=== PATIENT | female | born 1995 | race Caucasian/White ===

== ENCOUNTER 2018-03-20 12:11 | Outpatient (CLI) | payer OTHER ==
[2018-03-20 13:30] LABS: ADD UMIC NO; UR ASCORBIC ACID NEGATIVE (NEGATIVE); UR BILIRUBIN (Dip) NEGATIVE (NEGATIVE); UR BLOOD (Dip) NEGATIVE (NEGATIVE); UR CLARITY CLEAR (CLEAR); UR COLOR YELLOW (YELLOW); UR GLUCOSE (Dip) NEGATIVE (NEGATIVE); UR KETONES (Dip) NEGATIVE (NEGATIVE); UR LEUKOCYTE ESTERASE (Dip) NEGATIVE Leu/ul (NEGATIVE); UR NITRITE (Dip) NEGATIVE (NEGATIVE); UR SPECIFIC GRAVITY (Dip) 1.023 (1.003-1.030); UR TOTAL PROTEIN (Dip) NEGATIVE (NEGATIVE); UR UROBILINOGEN (Dip) NEGATIVE (NEGATIVE)
== END 2018-03-20 14:09 | disposition home or self-care (01) ==
LOC: OBT 12:11 → L-D 12:13 → OBT 14:09
DX: O62.9 Abnormality of forces of labor, unspecified (principal); Z3A.28 28 weeks gestation of pregnancy
CPT/HCPCS: 76817; 81003; 82731

== ENCOUNTER 2018-05-28 17:12 | Outpatient (CLI) | payer OTHER | END 2018-05-28 21:05 | disposition home or self-care (01) | LOC: OBT 17:12 → L-D 17:12 → OBT 21:05 | DX: O36.8130 Decreased fetal movements, third trimester, not applicable or unspecified (principal); Z3A.38 38 weeks gestation of pregnancy | CPT/HCPCS: 76815; 76818 ==

== ENCOUNTER 2018-06-06 08:21 | Inpatient (IN) | payer OTHER ==
[2018-06-06] MEDS ORDERED: METHYLERGONOVINE 0.2 MG INJ IM ×2 (09:30→19:00)
[2018-06-06] MEDS ORDERED: CARBOPROST 250 MCG INJ IM ×2 (09:30→19:00)
[2018-06-06] MEDS ORDERED: OXYTOCIN 30 UNITS/LR 500 ML IV ×2 (09:30→19:00)
[2018-06-06] MEDS ORDERED: MISOPROSTOL 200 MCG TAB PR ×2 (09:30→19:00)
[2018-06-06] MEDS ORDERED: CEFAZOLIN 2 GM/50 ML (PMX) 50 ML IV (09:30)
[2018-06-06 09:40] LABS: ADD MAN DIFF? NO
[2018-06-06 09:42] LABS: WHITE BLOOD COUNT 9.4 10^3/ul (4.8-10.8)
[2018-06-06 09:42] LABS: BASOPHIL # 0.1 10^3/ul (0.0-0.1); BASOPHILS % 0.5 % (0.0-2.0); EOSINOPHILS # 0.1 10^3/ul (0.0-0.5); EOSINOPHILS % 0.6 % (0.0-7.0); HEMOGLOBIN 12.5 g/dl (12.0-16.0); LYMPHOCYTES # 2.8 10^3/ul (0.8-2.9); LYMPHOCYTES % 30.1 % (15.0-51.0); MEAN CORPUSCULAR HEMOGLOBIN 30.6 pg (29.0-33.0); MEAN CORPUSCULAR HGB CONC 33.8 g/dl (32.0-37.0); MEAN CORPUSCULAR VOLUME 90.5 fl (82.0-101.0); MEAN PLATELET VOLUME 10.9 fl (7.4-10.4); MONOCYTE # 0.4 10^3/ul (0.3-0.9); MONOCYTES % 4.6 % (0.0-11.0); NEUTROPHILS % 63.6 % (39.0-77.0); PLATELET COUNT 232 10^3/UL (140-415); RED BLOOD COUNT 4.09 10^6/ul (4.20-5.40); RED CELL DISTRIBUTION WIDTH 12.4 % (11.5-14.5)
[2018-06-06 10:02] LABS: INR 0.89; PARTIAL THROMBOPLASTIN TIME 24.1 Sec (23.0-35.0); PROTIME 12.1 Sec (11.9-14.9); PT RATIO 0.9
[2018-06-06] MEDS: LACTATED RINGER'S 1,000 ML IV ×2 (10:20→17:05)
[2018-06-06] MEDS: AMPICILLIN 2 GM/NS (PMX) 100 ML IV (10:20)
[2018-06-06] MEDS: AMPICILLIN 1 GM/NS (PMX) 50 ML IV ×3 (14:56→21:30)
[2018-06-06 15:36] LABS: RAPID PLASMA REAGIN NONREACTIVE (NR)
[2018-06-06] MEDS: ONDANSETRON 4 MG INJ IV (17:31)
[2018-06-06] MEDS: CITRIC ACID/NA CITRATE 30 ML CUP PO (17:31)
[2018-06-06] MEDS ORDERED: HYDROCODONE/APAP (5/325) TAB PO ×2 (19:00)
[2018-06-06] MEDS ORDERED: METHYLERGONOVINE 0.2 MG TAB PO (19:00)
[2018-06-06] MEDS ORDERED: ONDANSETRON 4 MG INJ (19:10)
[2018-06-06] MEDS ORDERED: OXYTOCIN 30 UNITS/LR 1,000 ML IV (19:10)
[2018-06-06] MEDS ORDERED: BUPIVACAINE 0.75%/DEXT (SPINAL) 2 ML INJ (19:10)
[2018-06-06] MEDS ORDERED: PHENYLephrine (100 MCG/ML) 5ML SYG ×3 (19:10)
[2018-06-06] MEDS ORDERED: KETOROLAC 30 MG INJ (19:10)
[2018-06-06] MEDS ORDERED: DEXAMETHASONE 4 MG/ML 1 ML INJ (19:10)
[2018-06-06] MEDS ORDERED: morphine SULFATE/PF (10 MG/10 ML) INJ (19:10)
[2018-06-06] MEDS ORDERED: OXYTOCIN 10 UNIT INJ (19:10)
[2018-06-06] MEDS ORDERED: METOCLOPRAMIDE 10 MG INJ (19:10)
[2018-06-06] MEDS: OXYTOCIN 30 UNITS/LR 500 ML IV ×2 (19:16→23:15)
[2018-06-06] MEDS: SENNA/DOCUSATE NA (8.6MG/50MG) TAB PO (21:00)
[2018-06-06] MEDS ORDERED: ONDANSETRON 4 MG INJ IV (23:00)
[2018-06-06] MEDS ORDERED: morphine 2 MG INJ IV ×2 (23:00)
[2018-06-06] MEDS ORDERED: DIPHENHYDRAMINE 50 MG INJ IV (23:00)
[2018-06-06] MEDS ORDERED: HYDROmorphONE 0.5 MG/0.5 ML SYG IV ×2 (23:00)
[2018-06-07] MEDS: AMPICILLIN 1 GM/NS (PMX) 50 ML IV ×3 (01:30→21:30)
[2018-06-07] MEDS: KETOROLAC 30 MG INJ IV ×3 (01:50→13:33)
[2018-06-07] MEDS: LANOLIN 7 GM TUBE TOP (06:03)
[2018-06-07] MEDS ORDERED: BISACODYL 10 MG SUPP PR (08:30)
[2018-06-07] MEDS ORDERED: MAGNESIUM HYDROXIDE 30ML CUP PO (08:30)
[2018-06-07 08:57] LABS: ADD MAN DIFF? NO
[2018-06-07] MEDS: SENNA/DOCUSATE NA (8.6MG/50MG) TAB PO ×2 (09:00→21:12)
[2018-06-07 09:02] LABS: WHITE BLOOD COUNT 14.4 10^3/ul (4.8-10.8)
[2018-06-07 09:02] LABS: BASOPHILS % 0.3 % (0.0-2.0); EOSINOPHILS % 0.2 % (0.0-7.0); HEMATOCRIT 31.4 % (37.0-47.0); HEMOGLOBIN 10.5 g/dl (12.0-16.0); LYMPHOCYTES # 2.9 10^3/ul (0.8-2.9); LYMPHOCYTES % 19.9 % (15.0-51.0); MEAN CORPUSCULAR HEMOGLOBIN 30.6 pg (29.0-33.0); MEAN CORPUSCULAR HGB CONC 33.4 g/dl (32.0-37.0); MEAN CORPUSCULAR VOLUME 91.5 fl (82.0-101.0); MEAN PLATELET VOLUME 10.8 fl (7.4-10.4); MONOCYTE # 0.7 10^3/ul (0.3-0.9); MONOCYTES % 4.7 % (0.0-11.0); NEUTROPHIL # 10.7 10^3/ul (1.6-7.5); NEUTROPHILS % 74.4 % (39.0-77.0); PLATELET COUNT 188 10^3/UL (140-415); RED BLOOD COUNT 3.43 10^6/ul (4.20-5.40); RED CELL DISTRIBUTION WIDTH 12.4 % (11.5-14.5)
[2018-06-07 09:22] LABS: ANION GAP 8 (8-16); BLOOD UREA NITROGEN 6 mg/dl (7-20); CALCIUM 8.5 mg/dl (8.4-10.2); CARBON DIOXIDE 24 mmol/L (21-31); CHLORIDE 105 mmol/L (97-110); CREATININE 0.48 mg/dl (0.44-1.00); GLUCOSE 92 mg/dl (70-220); SODIUM 133 mmol/L (135-144)
[2018-06-07] MEDS: LACTATED RINGER'S 1,000 ML IV ×2 (10:38→19:30)
[2018-06-07] MEDS ORDERED: VITAMIN A & D 5 GM OINT PACKET TOP (13:58)
[2018-06-07] MEDS: IBUPROFEN 800 MG TAB PO (19:36)
[2018-06-07] MEDS: BISACODYL 10 MG SUPP PR (21:00)
[2018-06-07] MEDS: MAGNESIUM HYDROXIDE 30ML CUP PO (21:12)
[2018-06-08] MEDS: AMPICILLIN 1 GM/NS (PMX) 50 ML IV ×2 (01:30→05:30)
[2018-06-08] MEDS: LACTATED RINGER'S 1,000 ML IV (02:59)
[2018-06-08] MEDS: IBUPROFEN 800 MG TAB PO ×3 (04:27→21:13)
[2018-06-08] MEDS ORDERED: BISACODYL 10 MG SUPP PR ×2 (06:00→20:00)
[2018-06-08] MEDS: SENNA/DOCUSATE NA (8.6MG/50MG) TAB PO ×2 (09:51→21:13)
[2018-06-08] MEDS: MAGNESIUM HYDROXIDE 30ML CUP PO (09:51)
[2018-06-08] MEDS: BISACODYL 10 MG SUPP PR (09:52)
[2018-06-08] MEDS ORDERED: MAGNESIUM HYDROXIDE 30ML CUP PO (20:00)
[2018-06-09] MEDS: IBUPROFEN 800 MG TAB PO ×2 (05:13→12:47)
[2018-06-09 07:42] LABS: ADD MAN DIFF? NO
[2018-06-09 07:47] LABS: BASOPHILS % 0.3 % (0.0-2.0); EOSINOPHILS # 0.1 10^3/ul (0.0-0.5); EOSINOPHILS % 0.7 % (0.0-7.0); HEMATOCRIT 32.4 % (37.0-47.0); HEMOGLOBIN 10.5 g/dl (12.0-16.0); LYMPHOCYTES # 3.8 10^3/ul (0.8-2.9); MEAN CORPUSCULAR HEMOGLOBIN 29.9 pg (29.0-33.0); MEAN CORPUSCULAR HGB CONC 32.4 g/dl (32.0-37.0); MEAN CORPUSCULAR VOLUME 92.3 fl (82.0-101.0); MEAN PLATELET VOLUME 10.4 fl (7.4-10.4); MONOCYTE # 0.7 10^3/ul (0.3-0.9); MONOCYTES % 5.9 % (0.0-11.0); NEUTROPHIL # 7.2 10^3/ul (1.6-7.5); NEUTROPHILS % 60.5 % (39.0-77.0); PLATELET COUNT 212 10^3/UL (140-415); RED BLOOD COUNT 3.51 10^6/ul (4.20-5.40); RED CELL DISTRIBUTION WIDTH 12.7 % (11.5-14.5)
[2018-06-09 07:47] LABS: WHITE BLOOD COUNT 11.9 10^3/ul (4.8-10.8)
[2018-06-09] MEDS ORDERED: MEASLES,MUMPS,RUBELLA VACCINE INJ SC* (09:00)
[2018-06-09] MEDS: SENNA/DOCUSATE NA (8.6MG/50MG) TAB PO (09:07)
[2018-06-09] MEDS: DIPHTH/TET/ACEL PERTUSS (ADULT) 0.5 ML VIAL IM* (11:11)
== END 2018-06-09 13:40 | disposition home or self-care (01) | DRG 766 ==
LOC: L-D 08:21 → PP1 22:13
PROVIDERS: Obstetrics & Gynecology
PROC: 10D00Z1 Extraction of Products of Conception, Low, Open Approach (ICD-10-PCS; principal; 2018-06-06 09:00)
DX: O34.211 Maternal care for low transverse scar from previous cesarean delivery (principal); Z3A.39 39 weeks gestation of pregnancy; Z37.0 Single live birth
CPT/HCPCS: 80048; 85025; 85610; 85730; 86592; 86850; 86900; 86901; 90715; 99464

== ENCOUNTER 2019-02-18 21:17 | Inpatient (IN) | payer OTHER ==
[2019-02-18] MEDS: ACETAMINOPHEN 325 MG TAB PO (22:10)
[2019-02-18 23:06] LABS: ADD MAN DIFF? NO
[2019-02-18 23:09] LABS: BASOPHILS % 0.3 % (0.0-2.0); EOSINOPHILS % 0.1 % (0.0-7.0); HEMATOCRIT 32.7 % (37.0-47.0); HEMOGLOBIN 10.9 g/dl (12.0-16.0); LYMPHOCYTES # 1.5 10^3/ul (0.8-2.9); LYMPHOCYTES % 12.4 % (15.0-51.0); MEAN CORPUSCULAR HEMOGLOBIN 31.7 pg (29.0-33.0); MEAN CORPUSCULAR HGB CONC 33.3 g/dl (32.0-37.0); MEAN CORPUSCULAR VOLUME 95.1 fl (82.0-101.0); MEAN PLATELET VOLUME 10.1 fl (7.4-10.4); MONOCYTE # 0.6 10^3/ul (0.3-0.9); NEUTROPHIL # 9.6 10^3/ul (1.6-7.5); NEUTROPHILS % 81.6 % (39.0-77.0); PLATELET COUNT 267 10^3/UL (140-415); RED BLOOD COUNT 3.44 10^6/ul (4.20-5.40); RED CELL DISTRIBUTION WIDTH 12.1 % (11.5-14.5)
[2019-02-18 23:09] LABS: WHITE BLOOD COUNT 11.8 10^3/ul (4.8-10.8)
[2019-02-18 23:25] LABS: ADD UMIC YES; UR ASCORBIC ACID NEGATIVE (NEGATIVE); UR BILIRUBIN (Dip) NEGATIVE (NEGATIVE); UR BLOOD (Dip) NEGATIVE (NEGATIVE); UR CLARITY SLIGHTLY CLOUDY (CLEAR); UR COLOR AMBER (YELLOW); UR GLUCOSE (Dip) NEGATIVE (NEGATIVE); UR KETONES (Dip) TRACE mg/dL (NEGATIVE); UR LEUKOCYTE ESTERASE (Dip) TRACE Leu/ul (NEGATIVE); UR MUCUS FEW /HPF (NONE SEEN); UR NITRITE (Dip) NEGATIVE (NEGATIVE); UR RBC 2 /HPF (0-5); UR SPECIFIC GRAVITY (Dip) 1.018 (1.003-1.030); UR SQUAMOUS EPITHELIAL CELL FEW /HPF (FEW); UR TOTAL PROTEIN (Dip) NEGATIVE (NEGATIVE); UR UROBILINOGEN (Dip) NEGATIVE (NEGATIVE); UR WBC 9 /HPF (0-5)
[2019-02-18] MEDS: LACTATED RINGER'S 1,000 ML IV ×3 (23:38→23:59)
[2019-02-18 23:48] LABS: ALANINE AMINOTRANSFERASE 20 IU/L (13-69); ALBUMIN 3.8 g/dl (3.3-4.9); ALBUMIN/GLOBULIN RATIO 1.15; ALKALINE PHOSPHATASE 83 IU/L (42-121); ANION GAP 10 (5-13); ASPARTATE AMINO TRANSFERASE 26 IU/L (15-46); BILIRUBIN,INDIRECT 0.5 mg/dl (0-1.1); BILIRUBIN,TOTAL 0.5 mg/dl (0.2-1.3); BLOOD UREA NITROGEN 4 mg/dl (7-20); CALCIUM 9.3 mg/dl (8.4-10.2); CARBON DIOXIDE 20 mmol/L (21-31); CHLORIDE 106 mmol/L (97-110); Estimated GFR > 60 mL/min (>60); GLUCOSE 94 mg/dl (70-220); POTASSIUM 3.4 mmol/L (3.5-5.1); SODIUM 136 mmol/L (135-144); TOTAL PROTEIN 7.1 g/dl (6.1-8.1)
[2019-02-19] MEDS: CEFTRIAXONE 1 GM/50 ML (PMX) 50 ML IVPB (01:37)
[2019-02-19] MEDS: SOD CHLORIDE 0.9% 1,000 ML IV ×3 (01:37→16:30)
[2019-02-19] MEDS: OSELTAMIVIR 75 MG CAP PO ×3 (02:44→21:10)
[2019-02-19] MEDS: ACETAMINOPHEN 325 MG TAB PO ×4 (04:30→23:21)
[2019-02-19] MEDS: PRENATAL VITAMIN PO (09:38)
[2019-02-19] MEDS: LACTATED RINGER'S 1,000 ML IV ×3 (20:40→23:59)
[2019-02-20] MEDS: CEFTRIAXONE 1 GM/50 ML (PMX) 50 ML IVPB (01:04)
[2019-02-20] MEDS: SOD CHLORIDE 0.9% 1,000 ML IV ×3 (01:53→19:30)
[2019-02-20] MEDS: OSELTAMIVIR 75 MG CAP PO ×2 (09:20→21:09)
[2019-02-20] MEDS: PRENATAL VITAMIN PO (09:22)
[2019-02-21] MEDS: SOD CHLORIDE 0.9% 1,000 ML IV ×2 (03:00)
[2019-02-21] MEDS: CEFTRIAXONE 1 GM/50 ML (PMX) 50 ML IVPB (03:00)
[2019-02-21] MEDS: PRENATAL VITAMIN PO (09:09)
[2019-02-21] MEDS: OSELTAMIVIR 75 MG CAP PO (09:15)
[2019-02-21] MEDS: LACTATED RINGER'S 1,000 ML IV (16:30)
[2019-02-21 16:57] LABS: ADD MAN DIFF? NO
[2019-02-21 17:01] LABS: BASOPHILS % 0.2 % (0.0-2.0); EOSINOPHILS # 0.2 10^3/ul (0.0-0.5); EOSINOPHILS % 1.4 % (0.0-7.0); HEMATOCRIT 31.3 % (37.0-47.0); HEMOGLOBIN 10.6 g/dl (12.0-16.0); LYMPHOCYTES # 2.8 10^3/ul (0.8-2.9); LYMPHOCYTES % 22.9 % (15.0-51.0); MEAN CORPUSCULAR HEMOGLOBIN 31.3 pg (29.0-33.0); MEAN CORPUSCULAR HGB CONC 33.9 g/dl (32.0-37.0); MEAN CORPUSCULAR VOLUME 92.3 fl (82.0-101.0); MEAN PLATELET VOLUME 9.5 fl (7.4-10.4); MONOCYTE # 0.3 10^3/ul (0.3-0.9); MONOCYTES % 2.8 % (0.0-11.0); NEUTROPHIL # 8.8 10^3/ul (1.6-7.5); NEUTROPHILS % 72.2 % (39.0-77.0); PLATELET COUNT 259 10^3/UL (140-415); RED BLOOD COUNT 3.39 10^6/ul (4.20-5.40)
[2019-02-21 17:01] LABS: WHITE BLOOD COUNT 12.2 10^3/ul (4.8-10.8)
[2019-02-22] MEDS: SOD CHLORIDE 0.9% 1,000 ML IV ×6 (00:07→23:30)
[2019-02-22] MEDS: CEFTRIAXONE 1 GM/50 ML (PMX) 50 ML IVPB (01:05)
[2019-02-22] MEDS: PRENATAL VITAMIN PO (08:50)
[2019-02-23] MEDS: CEFTRIAXONE 1 GM/50 ML (PMX) 50 ML IVPB
[2019-02-23] MEDS: SOD CHLORIDE 0.9% 1,000 ML IV ×4 (04:20→19:30)
[2019-02-23] MEDS: PRENATAL VITAMIN PO (09:11)
[2019-02-23 13:21] LABS: ADD UMIC NO; UR ASCORBIC ACID NEGATIVE (NEGATIVE); UR BILIRUBIN (Dip) NEGATIVE (NEGATIVE); UR BLOOD (Dip) NEGATIVE (NEGATIVE); UR CLARITY CLEAR (CLEAR); UR COLOR STRAW (YELLOW); UR GLUCOSE (Dip) NEGATIVE (NEGATIVE); UR KETONES (Dip) NEGATIVE (NEGATIVE); UR LEUKOCYTE ESTERASE (Dip) NEGATIVE Leu/ul (NEGATIVE); UR NITRITE (Dip) NEGATIVE (NEGATIVE); UR SPECIFIC GRAVITY (Dip) 1.005 (1.003-1.030); UR TOTAL PROTEIN (Dip) NEGATIVE (NEGATIVE); UR UROBILINOGEN (Dip) NEGATIVE (NEGATIVE)
[2019-02-24] MEDS: CEFTRIAXONE 1 GM/50 ML (PMX) 50 ML IVPB (01:05)
[2019-02-24] MEDS: SOD CHLORIDE 0.9% 1,000 ML IV (02:20)
== END 2019-02-24 10:10 | disposition home or self-care (01) | DRG 833 ==
LOC: OBT 21:17 → L-D 23:55 → OBT 23:45 → L-D 23:45
DX: O23.02 Infections of kidney in pregnancy, second trimester (principal); O99.212 Obesity complicating pregnancy, second trimester; Z3A.24 24 weeks gestation of pregnancy
CPT/HCPCS: 76775; 76815; 76817; 76818; 80053; 81001; 81003; 85025; 87040-91; 87086; 87400

== ENCOUNTER 2019-05-27 13:55 | Inpatient (IN) | payer OTHER ==
[2019-05-27] MEDS: LACTATED RINGER'S 1,000 ML IV (17:07)
[2019-05-28] MEDS: LACTATED RINGER'S 1,000 ML IV ×3 (00:36→19:00)
[2019-05-28] MEDS: ACETAMINOPHEN 325 MG TAB PO (05:31)
[2019-05-28] MEDS: PRENATAL VITAMIN PO (08:43)
[2019-05-28] MEDS ORDERED: METHYLERGONOVINE 0.2 MG INJ IM (14:00)
[2019-05-28] MEDS ORDERED: OXYTOCIN 30 UNITS/LR 500 ML IV (14:00)
[2019-05-28] MEDS ORDERED: MISOPROSTOL 200 MCG TAB PR (14:00)
[2019-05-28] MEDS ORDERED: CARBOPROST 250 MCG INJ IM (14:00)
[2019-05-29] MEDS: LACTATED RINGER'S 1,000 ML IV ×5 (03:04→23:20)
[2019-05-29] MEDS ORDERED: ONDANSETRON 4 MG INJ (06:02)
[2019-05-29] MEDS ORDERED: morphine SULFATE/PF (10 MG/10 ML) INJ (06:02)
[2019-05-29] MEDS ORDERED: OXYTOCIN 30 UNITS/LR 500 ML BAG IV (06:02)
[2019-05-29] MEDS ORDERED: OXYTOCIN 10 UNIT INJ (06:02)
[2019-05-29] MEDS: CEFAZOLIN 2 GM/50 ML (PMX) 50 ML IVPB (07:17)
[2019-05-29] MEDS ORDERED: OXYTOCIN 30 UNITS/LR 500 ML IV ×4 (07:18→17:00)
[2019-05-29] MEDS ORDERED: NACL 0.9% 3 ML SYG IV ×3 (07:30→17:00)
[2019-05-29] MEDS ORDERED: CARBOPROST 250 MCG INJ IM ×3 (07:30→17:00)
[2019-05-29] MEDS ORDERED: DIPHENHYDRAMINE 50 MG INJ IV (07:30)
[2019-05-29] MEDS ORDERED: METHYLERGONOVINE 0.2 MG INJ IM ×3 (07:30→17:00)
[2019-05-29] MEDS ORDERED: morphine 2 MG INJ IV (07:30)
[2019-05-29] MEDS ORDERED: ONDANSETRON 4 MG INJ IV (07:30)
[2019-05-29] MEDS ORDERED: MISOPROSTOL 200 MCG TAB PR ×3 (07:30→17:00)
[2019-05-29] MEDS ORDERED: NALOXONE (0.4 MG/ML) INJ IV (07:30)
[2019-05-29] MEDS: OXYTOCIN 30 UNITS/LR 500 ML IV ×2 (11:35→16:56)
[2019-05-29] MEDS: KETOROLAC 30 MG INJ IV (20:26)
[2019-05-29] MEDS: SENNA/DOCUSATE NA (8.6MG/50MG) TAB PO (20:30)
[2019-05-30] MEDS: KETOROLAC 30 MG INJ IV (04:03)
[2019-05-30] MEDS: LACTATED RINGER'S 1,000 ML IV (08:56)
[2019-05-30] MEDS: SENNA/DOCUSATE NA (8.6MG/50MG) TAB PO ×2 (09:23→21:30)
[2019-05-30] MEDS: OXYCODONE/ACETAMINOPHEN (5/325) TAB PO ×2 (11:30→21:30)
[2019-05-30] MEDS ORDERED: IBUPROFEN 600 MG TAB PO (16:00)
[2019-05-30] MEDS: BISACODYL 10 MG SUPP PR (16:20)
[2019-05-30] MEDS: IBUPROFEN 800 MG TAB PO (16:20)
[2019-05-30] MEDS: FERROUS SULFATE (EC) 325 MG TAB PO (21:30)
[2019-05-31] MEDS: IBUPROFEN 800 MG TAB PO ×2 (00:49→16:37)
[2019-05-31] MEDS: OXYCODONE/ACETAMINOPHEN (5/325) TAB PO ×3 (04:25→22:23)
[2019-05-31] MEDS: SENNA/DOCUSATE NA (8.6MG/50MG) TAB PO ×2 (08:11→22:23)
[2019-05-31] MEDS: FERROUS SULFATE (EC) 325 MG TAB PO ×2 (10:06→22:23)
[2019-06-01] MEDS: FERROUS SULFATE (EC) 325 MG TAB PO (08:16)
[2019-06-01] MEDS: SENNA/DOCUSATE NA (8.6MG/50MG) TAB PO (08:16)
[2019-06-01] MEDS: NA PHOSPHATE/BIPHOS 133 ML ENEMA PR (08:19)
[2019-06-01] MEDS: LANOLIN HPA 1 PKT TOP (11:31)
[2019-06-01] MEDS: OXYCODONE/ACETAMINOPHEN (5/325) TAB PO (11:31)
== END 2019-06-01 16:48 | disposition home or self-care (01) | DRG 785 ==
LOC: OBT 13:55 → L-D 05-29 02:31 → OBT 15:38 → L-D 05-29 06:30 → PP1 05-29 10:21
PROC: 10D00Z1 Extraction of Products of Conception, Low, Open Approach (ICD-10-PCS; principal; 2019-05-29 06:00)
PROC: 0UT70ZZ Resection of Bilateral Fallopian Tubes, Open Approach (ICD-10-PCS; 2019-05-29 06:00)
PROC: 10907ZC Drainage of Amniotic Fluid, Therapeutic from Products of Conception, Via Natural or Artificial Opening (ICD-10-PCS; 2019-05-29 06:00)
DX: O34.211 Maternal care for low transverse scar from previous cesarean delivery (principal); E66.01 Morbid (severe) obesity due to excess calories; O99.213 Obesity complicating pregnancy, third trimester; O11.4 Pre-existing hypertension with pre-eclampsia, complicating childbirth; Z37.0 Single live birth; Z3A.38 38 weeks gestation of pregnancy
CPT/HCPCS: 76818; 80053; 81001; 82575; 84156; 84560; 85025; 85610; 85730; 86592; 86850; 86900; 86901; 87340; 88302; 99464